=== PATIENT | male | born 1965 | race Native Hawaiian/Other Pacific Islander ===

== ENCOUNTER 2017-09-30 15:16 | Emergency (ER) | payer OTHER ==
[~2017-09-30] VITALS: Ht 175.3 cm; Wt 85.7 kg
[2017-09-30] MEDS ORDERED: ZANTAC 75 PO (16:16)
== END 2017-09-30 18:15 | disposition home or self-care (01) ==
LOC: ED 15:16
DX: L02.413 Cutaneous abscess of right upper limb (principal)
CPT/HCPCS: 99282